=== PATIENT | male | born 1985 | race African-American/Black ===

== ENCOUNTER 2016-07-24 23:24 | Emergency (ER) | payer SELFPAY ==
[~2016-07-24] VITALS: Ht 175.3 cm; Wt 113.6 kg
[~2016-07-24 23:24] MED LIST: NOCURR
[2016-07-25 05:01] VITALS: BP 124/59
[2016-07-25] MEDS ORDERED: CIPROFLOXACIN HCL 0.3% 2.5 ML OPHTHALMIC SOLUTION OS ONE (05:30)
== END 2016-07-25 05:49 | disposition home or self-care (01) ==
LOC: EMS 23:26
DX: H10.89 Other conjunctivitis (principal)
CPT/HCPCS: 99282